=== PATIENT | female | born 1940 | race Caucasian/White ===

== ENCOUNTER 2017-07-12 13:51 | Outpatient (CLI) | payer OTHER, MEDICARE | END 2017-07-12 19:37 | disposition home or self-care (01) | LOC: SMA 13:51 | PROVIDERS: ATTEND Internal Medicine | DX: Z12.31 Encounter for screening mammogram for malignant neoplasm of breast (principal) | CPT/HCPCS: 77067 ==

== ENCOUNTER 2018-09-25 13:42 | Outpatient (CLI) | payer OTHER, MEDICARE | END 2018-09-25 21:10 | disposition home or self-care (01) | LOC: SMA 13:42 | PROVIDERS: ATTEND Internal Medicine | DX: Z12.31 Encounter for screening mammogram for malignant neoplasm of breast (principal) | CPT/HCPCS: 77067 ==

== ENCOUNTER 2020-10-24 14:30 | Outpatient (CLI) | payer OTHER, MEDICARE | END 2020-10-24 20:13 | disposition home or self-care (01) | LOC: SMA 14:30 | PROVIDERS: ATTEND Internal Medicine | DX: Z12.31 Encounter for screening mammogram for malignant neoplasm of breast (principal) | CPT/HCPCS: 77067 ==

== ENCOUNTER 2021-10-31 10:46 | Outpatient (CLI) | payer OTHER, MEDICARE | END 2021-10-31 19:14 | disposition home or self-care (01) | LOC: SMA 10:46 | PROVIDERS: ATTEND Internal Medicine | DX: Z12.31 Encounter for screening mammogram for malignant neoplasm of breast (principal) | CPT/HCPCS: 77067 ==

== ENCOUNTER 2024-01-22 14:26 | Outpatient (CLI) | payer OTHER, MEDICARE | END 2024-01-22 19:01 | disposition home or self-care (01) | LOC: SMA 14:26 | PROVIDERS: ATTEND Internal Medicine | DX: Z12.31 Encounter for screening mammogram for malignant neoplasm of breast (principal); R92.323 Mammographic fibroglandular density, bilateral breasts | CPT/HCPCS: 77067 ==